=== PATIENT | female | born 1975 | race Two or more races ===

== ENCOUNTER 2017-01-29 09:05 | Day surgery (SDC) | payer BC ==
[~2017-01-29 09:05] MED LIST: Buffered Lidocaine 1% SYR 3ML* 3 ML/SYR SYRINGE INTRADERM ONE; Famotidine IV* 10 MG/ML 2 ML (20 mg) IV ONE; Famotidine IV* 10 MG/ML 2 ML (20 mg) ONE; ceFAZolin 2 GM PREMIX (*) 2 GM/50 ML BAG IVPB ONE
[2017-01-29 09:10] LABS: UR Preg Internal Control QC Line Present
[2017-01-29] MEDS ORDERED: Midazolam* 1 MG/ML 5 ML VIAL (5 MG) ONE (09:38)
[2017-01-29] MEDS ORDERED: fentaNYL* 50 MCG/ML 2 ML VIAL (100 MCG VIAL) ONE (09:38)
[2017-01-29] MEDS ORDERED: Ondansetron INJ* 2 MG/ML VIAL ONE (09:46)
[2017-01-29] MEDS ORDERED: Dexamethasone IV* 4 MG/ML 1 ML (4 MG) ONE (09:46)
[2017-01-29] MEDS ORDERED: Lidocaine 2% PF * 5 ML VIAL ONE (09:46)
[2017-01-29] MEDS ORDERED: Ketorolac INJ* 30 MG/ML 1 ML VIAL ONE (09:46)
[2017-01-29] MEDS ORDERED: Propofol* 10 MG/ML 20 ML BTL IV PUSH ONE (09:46)
[2017-01-29] MEDS ORDERED: Acetaminophen TAB* 325 MG PO PRN (10:06)
[2017-01-29] MEDS ORDERED: HYDROmorphone INJ* 1 MG/ML CARPUJECT SYRINGE IV PRN (10:06)
[2017-01-29] MEDS ORDERED: DiMENhydriNATE IV* 50 MG/ML VIAL IV PUSH PRN (10:06)
[2017-01-29] MEDS ORDERED: oxyCODONE/Acetamin 5/325 MG* TAB PO PRN (10:06)
[2017-01-29 12:59] VITALS: BP 110/73
--- NOTE | 2017-01-30 05:58 | OP ---
DATE OF OPERATION: 01/29/17 [facility] DATE OF : 73 SURGEON: Reyna Mason MD [employer] TECHNICIAN: None. ANESTHESIOLOGIST: Tania Yeboah MD ANESTHESIA: General endotracheal. PRE-OP DIAGNOSIS: Endometrial intraepithelial neoplasia. POST-OP DIAGNOSIS: Endometrial intraepithelial neoplasia. OPERATIVE PROCEDURE: Dilation and curettage, and hysteroscopy. ESTIMATED BLOOD LOSS: Minimal. URINE OUTPUT: 100 cc of clear yellow urine. FLUIDS: 500 cc of crystalloid. FINDINGS: Revealed normal tubal ostia seen bilaterally. Anteverted uterus with very anterior endocervical canal. Normal uterine cavity without masses or excrescences. SPECIMENS: Endometrial curettings. COMPLICATIONS: None apparent. DISPOSITION: Stable to recovery room. DESCRIPTION OF PROCEDURE: The patient was placed in dorsal lithotomy position, legs were placed in universal Fabio stirrups. The perineum and vagina were prepped and draped in a sterile standard fashion. The patient was identified with universal protocol for correct patient, position, and procedure. Drainage of the bladder was carried out with self-cath for clear yellow urine of 100 cc. Self-cath was removed. A sterile speculum was inserted. The cervix was visualized, grasped from the anterior lip, and using Hegar dilators, dilated to #3. Hysteroscope was then inserted in the endocervical canal to see exactly the course of the internal os, which was noted to be very anterior. At that point, a dilation was then carried out to #6 Hegar dilator. Hysteroscope was then inserted confirming excellent placement of the hysteroscope with normal uterine cavity and normal tubal ostia seen. No excrescence, polyps, or mass are noted. The hysteroscope was then removed and a sharp curettage was performed. Hysteroscope was then reinserted to confirm excellent sampling. Once sampling was confirmed to be adequate, the hysteroscope was removed. Single-tooth tenaculum was removed. Hemostasis was appreciated, where the single-tooth tenaculum had been placed. Sterile speculum was removed. The patient was returned to dorsal lithotomy position and taken to recovery room in stable condition. All sponge, instrument, and blade counts were correct throughout the case. The patient tolerated the procedure well and went to recovery room in stable condition. [id number]/[facility] #: [id number] [facility]
== END 2017-01-29 13:11 | disposition home or self-care (01) ==
LOC: OR 09:05
PROVIDERS: ATTEND Obstetrics & Gynecology
DX: N85.02 Endometrial intraepithelial neoplasia [EIN] (principal); E03.9 Hypothyroidism, unspecified
CPT/HCPCS: 36415; 81025; 86850; 86900; 86901; 88305; J0690; J1100; J1885; J2250; J2405; J2704; J3010